=== PATIENT | female | born 2000 | race Caucasian/White ===

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

== ENCOUNTER 2022-08-11 18:49 | Emergency (ER) | payer BC, MEDICAID, SELFPAY ==
[2022-08-11 18:58] VITALS: BP 112/58; PULSE 111; RESP 16; TEMP 36.8; O2SAT 99
--- NOTE | 2022-08-11 19:11 | ED.URI ---
HPI - URI/Sore Throat General Chief Complaint: Upper Respiratory Infection Stated Complaint: Sore Throat/Headache Time Seen by Provider: 08/11/22 19:11 Source: patient, family, RN notes reviewed and old records reviewed Mode of arrival: ambulatory Limitations: no limitations History of Present Illness HPI Narrative: 21-YEAR-OLD FEMALE WHO PRESENTS TO [facility]ARE ACCOMPANIED BY MOTHER WITH COMPLAINTS OF SORE THROAT, HEADACHES SINCE LAST NIGHT AROUND 10 PM PATIENT HAS BEEN TAKING IBUPROFEN WITH LAST DOSE AT 2:30 P.M. TODAY NO KNOWN FEVERS, SINUS DRAINAGE OR ACUTE COUGH. PATIENT REPORTS THAT SHE TOOK COVID TEST AT WORK ON TUESDAY WHICH WAS NEGATIVE. MD elicited complaint: sore throat and other (HEADACHE) Onset (ago): hour(s) (SINCE 2199 LAST NIGHT) Pain scale (0-10): 7 Able to tolerate fluids by mouth: Yes Treatments prior to arrival: ibuprofen Related Data Home Medications Medication Instructions Recorded Confirmed etonogestrel 0.12 mg-ethinyl 1 vag ring vaginal ONCE 08/02/20 08/11/22 estradiol 0.015 mg/24 hr vaginal ring Allergies Allergy/AdvReac Type Severity Reaction Status Date / Time No Known Allergies Allergy Verified 08/11/22 19:10 Review of Systems Review of Systems: CONSTITUTIONAL: Denies malaise, chills, sweats, or fever. EYES: Denies visual changes, redness, or discharge. ENT: Reports rhinorrhea, congestion, sinus pain,NO otalgia POSITIVE sore throat. CARDIOVASCULAR: Denies chest pain, palpitations, or edema. RESPIRATORY: Reports cough.? Denies dyspnea. GASTROINTESTINAL: Denies abdominal pain, nausea, vomiting, diarrhea SKIN: Denies rash or itching. MUSCULOSKELETAL: Denies myalgia. NEUROLOGIC: POSITIVE headache. All systems reviewed & are unremarkable except as noted in HPI and below PMFSH Past Medical History Medical History (Updated 08/13/22 @ 17:28 by Amelia Tilley NP) Anxiety and depression Asthma Surgical History Surgical History (Updated 08/13/22 @ 17:28 by Amelia Tilley NP) H/O hand surgery left orthopedic surgery Family History Family History Other No acute medical problems Social History Social History (Updated 08/13/22 @ 17:29 by Amelia Tilley NP) Smoking status: Never smoker Alcohol intake: never Substance use type: does not use Living arrangements: with family Gender identity (if verbalized by the patient): Female Comments At time of signature, agree with nursing past medical, surgical, social and family history. There is no relevant family history pertinent to the presenting complaint Exam Narrative: GENERAL: Well-appearing, well-nourished, and in no acute distress. HEAD: Normocephalic EYES: PERRLA, conjunctivae clear ENT: Nares clear, turbinates edematous and erythematous, clear discharge. Mucous membranes moist. TM pearly mccord with dull light reflex bilaterally; no tragal tenderness. Oropharynx erythematous without lesions. Tonsils red enlarged and without exudate, no drooling, no hoarseness, no trismus, uvula midline. NECK: Supple. No lymphadenopathy CHEST: Clear to auscultation, breath sounds equal. No wheezing, rhonchi, rales, or stridor. No respiratory distress, speaks in full sentences.SAO2 99% on room air HEART: Regular rate and rhythm. No murmur heard. SKIN: Warm, dry, no rash. NEURO: Alert and oriented x3. PSYCH: Normal mood and affect Course Course Emergency Course: Patient is aware of diagnosis, understands and agrees to treatment plan.? Anticipatory guidance given.? Patient agrees to follow-up as directed and is aware of reasons to seek care at the emergency department. Portions of this record may have been created with voice recognition software Level of Care: Express Care Visit Vital Signs Vital signs: Vital Signs Temperature 36.8 C 08/11/22 18:58 Pulse Rate 111 H 08/11/22 18:58 Respiratory Rate 16 08/11/22 18:58
== END 2022-08-11 19:27 | disposition home or self-care (01) ==
PROVIDERS: Emergency Provider Registered Nurse
DX: J02.0 Streptococcal pharyngitis (principal); J45.909 Unspecified asthma, uncomplicated
CPT/HCPCS: 87880; 99213; G0463

== ENCOUNTER 2022-08-30 16:29 | Emergency (ER) | payer BC, MEDICAID, SELFPAY ==
[2022-08-30 16:36] VITALS: BP 101/59; PULSE 85; RESP 14; TEMP 36.7; O2SAT 100
--- NOTE | 2022-08-30 16:39 | ED.HA ---
HPI - Headache General Chief Complaint: Headache Stated Complaint: Headache/Vomiting Time Seen by Provider: 08/30/22 16:39 Source: patient and RN notes reviewed History of Present Illness HPI Narrative: Patient is a 21-year-old female who presents to urgent care with complaints of a headache for the last couple days. Patient states that she was concerned it may be ?COVID and she missed her test at work because she stayed home for headache and ?. Patient has not used an [id number] test test herself for COVID. Denies any recent head injury. Denies any vomiting but does state that she has had some nausea and chills. Denies any known fever. Patient states that she has to get headaches a couple years ago and she has been taking [id number] Tylenol and ibuprofen with some relief. No other acute complaints. No acute distress noted. Patient aware of the plan of care. Some parts of this dictation were generated by voice recognition software and may contain typographical and/or grammatical inaccuracies. Related Data Home Medications Medication Instructions Recorded Confirmed levonorgestrel 21 mcg/24 hours (8 1 device intrauterine ONCE 08/30/22 08/30/22 yrs) 52 mg intrauterine device (Mirena) Allergies Allergy/AdvReac Type Severity Reaction Status Date / Time No Known Allergies Allergy Verified 08/30/22 16:44 Review of Systems Review of Systems: CONSTITUTIONAL: Denies fever EYES: Denies visual changes, redness, or discharge. ENT: Denies rhinorrhea, congestion, sore throat, or otalgia. CARDIOVASCULAR: Denies chest pain, palpitations, or edema. RESPIRATORY: Denies cough or dyspnea. GASTROINTESTINAL: Reports nausea without vomiting GENITOURINARY: Denies dysuria or hematuria. SKIN: Denies rash or itching. MUSCULOSKELETAL: Denies back pain, joint pain, or myalgia. NEUROLOGIC: Reports of headache All other systems reviewed are negative, except as documented in HPI. [facility] Past Medical History Medical History (Updated 08/30/22 @ 16:55 by DANILO Arroyo) Anxiety and depression Asthma Surgical History Surgical History (Updated 08/13/22 @ 17:28 by Amelia Tilley NP) H/O hand surgery left orthopedic surgery Family History Family History Other No acute medical problems Social History Social History (Updated 08/13/22 @ 17:29 by Amelia Tilley NP) Smoking status: Never smoker Alcohol intake: never Substance use type: does not use Living arrangements: with family Gender identity (if verbalized by the patient): Female Comments At the time of my signature, I reviewed and agree with the nursing past medical, surgical, social, and family history. There is no relevant family history pertinent to the patient complaint. Exam Narrative: GENERAL: This is a well-nourished, well-developed patient, in no apparent distress. HEAD: normocephalic, atraumatic. EYES: PERRL. Sclera clear/white. Vision is grossly intact. EARS: External ears normal NOSE: External nose normal with no obvious nasal discharge, nares without redness, no rhinorrhea. THROAT: Mucous membranes moist NECK: Neck supple CARDIOVASCULAR: Regular rate and rhythm RESPIRATORY: Clear to auscultation. Breath sounds equal bilaterally. No wheezes, rales, or rhonchi. SKIN: warm, intact with no suspicious lesions or rash, good texture and turgor. NEURO: awake, alert, and oriented to person, place and time. There were no obvious focal neurologic abnormalities. EXTREMITIES: No clubbing, cyanosis, or edema. Course Course Level of Care: Express Care Visit Vital Signs Vital signs: Vital Signs Temperature 98.1 F 08/30/22 16:36 Pulse Rate 85 08/30/22 16:36 Respiratory Rate 14 08/30/22 16:36 Blood Pressure 101/59 L 08/30/22 16:36 Pulse Oximetry 100 08/30/22 16:36 Oxygen Delivery Room Air 08/30/22 16:36 Temperature 98.1 F 08/30/22 16:36 Pul
== END 2022-08-30 17:01 | disposition home or self-care (01) ==
PROVIDERS: Emergency Provider Nurse Practitioner Family
DX: R51.9 Headache, unspecified (principal); J45.909 Unspecified asthma, uncomplicated
CPT/HCPCS: 99211; G0463

== ENCOUNTER 2024-01-06 23:03 | Emergency (ER) | payer OTHER, SELFPAY ==
[2024-01-06 23:07] VITALS: BP 94/54; PULSE 78; RESP 15; TEMP 36.9; O2SAT 100
[2024-01-06 23:26] LABS: Basophils Percent Auto 0.2 % (0.2-1.2); Eosinophils Absolute Auto 0.1 K/mm3 (0-0.3); Eosinophils Percent Auto 1.4 % (0-4.4); Hematocrit 31.8 % (37.0-47.0); Immature Granulocyte Absolute 0.02 K/mm3 (0.00-0.031); Immature Granulocyte Percent A 0.3 % (0-0.5); Lymphocytes Absolute Auto 2.37 K/mm3 (0.9-3.2); Mean Corpuscular HGB Conc 34.6 g/dl (32-36); Mean Corpuscular Hemoglobin 31.4 pg (26-34); Mean Corpuscular Volume 90.9 fl (80-100); Mean Platelet Volume 9.4 fl (7.4-10.4); Monocytes Absolute Auto 0.4 K/mm3 (0.1-0.6); Monocytes Percent Auto 5.3 % (2.6-8.5); Neutrophils Absolute Auto 3.7 K/mm3 (1.3-6.7); Neutrophils Percent Auto 56.8 % (45.5-73.1); Platelet Count Result 204 k/mm3 (150-375); Red Cell Distribution Width 13.1 % (11.5-14.5); White Blood Count 6.6 K/mm3 (4.5-10.0)
[2024-01-06 23:36] LABS: Add Urine Microscopic? NO; Appearance Urine Clear (Clear); Bilirubin Urine Negative (Negative); Blood Urine Negative (Negative); Color Urine Yellow (Yellow); Glucose Urine UA Negative (Negative); Ketones Urine Negative (Negative); Leukocyte Esterase Ur Negative LEU/UL (Negative); Nitrate Urine Negative (Negative); Protein Urine Negative (Negative); Specific Grav Ur 1.022 (1.001-1.035)
[2024-01-06 23:50] LABS: Alanine Aminotransferase 10 U/L (6-35); Albumin Level 3.6 g/dL (3.5-5.1); Alkaline Phosphatase 54 U/L (38-126); Anion Gap 7 mmol/L (4-12); Aspartate Amino Transferase 19 U/L (14-36); Bilirubin,Total 0.2 mg/dL (0.2-1.3); Blood Urea Nitrogen 14 mg/dL (7-17); Calcium 9.1 mg/dL (8.4-10.2); Carbon Dioxide 25 mmol/L (22-30); Chloride 102 mmol/L (98-107); Estimated CRCL calculation 109 ml/min; Estimated Glomerular Filt Rate > 60; Glucose 87 mg/dL (65-110); Lipase 110 U/L (23-300); Potassium 3.9 mmol/L (3.4-5.0); Sodium 134 mmol/L (137-145)
[2024-01-06 23:54] LABS: BEDSIDEPREGUCG Positive
[2024-01-07] MEDS: ACETAMINOPHEN 500 MG TABLET 1000 MG PO (00:38)
--- NOTE | 2024-01-07 00:58 | ED.ABDPAIN ---
HPI - Abdominal Pain General Chief Complaint: Abdominal Pain Stated Complaint: lower RIGHT side abd pain Time Seen by Provider: 01/07/24 00:18 History of Present Illness HPI narrative: Patient is at 16 weeks who presents here with right lower quadrant pain, started this morning when she woke up, has steadily been getting worse, no significant nausea or vomiting, no fevers or chills Related Data Home Medications Medication Instructions Recorded Confirmed levonorgestrel 21 mcg/24 hr (up to 1 device intrauterine ONCE 08/30/22 08/30/22 8 years) 52 mg intrauterine device (Mirena) Allergies Allergy/AdvReac Type Severity Reaction Status Date / Time No Known Allergies Allergy Verified 08/30/22 16:44 Review of Systems Review of Systems: All systems reviewed & are unremarkable except as noted in HPI and below PMFSH Past Medical History Medical History (Updated 01/07/24 @ 01:01 by Chery Vaughan MD) Anxiety and depression Asthma Surgical History Surgical History (Updated 08/13/22 @ 17:28 by Amelia Tilley NP) H/O hand surgery left orthopedic surgery Family History Family History Other No acute medical problems Social History Social History (Updated 08/13/22 @ 17:29 by Amelia Tilley NP) Smoking status: Never smoker Alcohol intake: never Substance use type: does not use Living arrangements: with family Gender identity (if verbalized by the patient): Female Exam Narrative: EXAMINATION OF ORGAN SYSTEMS/BODY AREAS: Constitutional: Vital signs per nursing GENERAL:[No acute distress, non-toxic appearing.] HEAD: Normal with no signs of head trauma. EYES: EOMI, conjunctiva normal ENT: Hearing grossly intact LUNGS: Nonlabored breathing. HEART: [Regular rate and rhythm] ABD: [Soft], [tender to palpation diffusely but most in the RLQ] EXT: Normal range of motion SKIN: [No rashes or lesions.] NEURO: [Alert and oriented x 3. No gross focal sensory or strength deficits.] PSYCH: Normal affect Course Vital Signs Vital signs: Vital Signs Temperature 98.4 F 01/06/24 23:07 Pulse Rate 78 01/06/24 23:07 Respiratory Rate 15 01/06/24 23:07 Blood Pressure 94/54 L 01/06/24 23:07 Pulse Oximetry 100 01/06/24 23:07 Oxygen Delivery Room Air 01/06/24 23:07 Temperature 98.4 F 01/06/24 23:07 Pulse Rate 78 01/06/24 23:07 Respiratory Rate 15 01/06/24 23:07 Blood Pressure 94/54 L 01/06/24 23:07 Pulse Oximetry 100 01/06/24 23:07 Oxygen Delivery Room Air 01/06/24 23:07 MDM - Abdominal Pain MDM Narrative Medical decision making narrative: patient presenting with right lower quadrant tenderness and pain, she is 16 weeks and unfortunately we do not have MRI capabilities here to rule out appendicitis. I did give her the option of staying here for serial exams with possible MRI in the morning versus going to her OB and she would rather be transferred at this time, case discussed with OBGYN Dr Ball who [facility], heart rate is 145, patient agreeable to this plan of going private vehicle. Lab Data 01/06/24 23:18 01/06/24 23:18 Labs: Lab Results 01/06/24 01/06/24 01/06/24 Range/Units 23:18 23:27 23:52 WBC 6.6 (4.5-10.0) K/mm3 RBC 3.50 L (4.2-5.4) M/mm3 Hgb 11.0 L (12.0-15.0) g/dL Hct 31.8 L (37.0-47.0) % MCV 90.9 (80-100) fl MCH 31.4 (26-34) pg MCHC 34.6 (32-36) g/dl RDW 13.1 (11.5-14.5) % Plt Count 204 (150-375) k/mm3 MPV 9.4 (7.4-10.4) fl Immature Gran % (Auto) 0.3 (0-0.5) % Neut % (Auto) 56.8 (45.5-73.1) % Lymph % (Auto) 36.0 (18.3-44.2) % [place] % (Auto) 5.3 (2.6-8.5) % Eos % (Auto) 1.4 (0-4.4) % Baso % (Auto) 0.2 (0.2-1.2) % Lymph # (Auto) 2.37 (0.9-3.2) K/mm3 [place] # (Auto) 0.4 (0.1-0.6)
[2024-01-07 01:31] VITALS: BP 90/47; PULSE 62; RESP 17; O2SAT 100
== END 2024-01-07 01:42 | disposition short-term general hospital (02) ==
PROVIDERS: Emergency Provider Emergency Medicine
DX: O26.892 Other specified pregnancy related conditions, second trimester (principal); R10.31 Right lower quadrant pain; O99.512 Diseases of the respiratory system complicating pregnancy, second trimester; J45.909 Unspecified asthma, uncomplicated; Z3A.16 16 weeks gestation of pregnancy
CPT/HCPCS: 36415; 80053; 81003; 81025; 83690; 85025; 99285; A9270